=== PATIENT | male | born 1990 ===

== ENCOUNTER → 2017-03-06 17:52 | Outpatient (CLI) | payer OTHER | END | disposition home or self-care (01) | LOC: LAB 17:52 | DX: J10.1 Influenza due to other identified influenza virus with other respiratory manifestations (principal) ==

== ENCOUNTER 2022-12-18 07:25 | Outpatient (CLI) | payer OTHER | END 2022-12-18 08:33 | disposition home or self-care (01) | LOC: SONOGRAMA 07:25 | DX: K76.0 Fatty (change of) liver, not elsewhere classified (principal); R10.30 Lower abdominal pain, unspecified ==